=== PATIENT | male | born 1950 | race Caucasian/White ===

== ENCOUNTER 2024-04-12 10:39 | Outpatient (CLI) | payer MEDICARE, OTHER, SELFPAY ==
[2024-04-12 20:13] LABS: Anion Gap 7 mmol/L (4-12); Blood Urea Nitrogen 22 mg/dL (9-20); Calcium 9.8 mg/dL (8.4-10.2); Carbon Dioxide 31 mmol/L (22-30); Chloride 101 mmol/L (98-107); Estimated Glomerular Filt Rate 59; Glucose 105 mg/dL (65-110); Potassium 4.4 mmol/L (3.4-5.0); Sodium 139 mmol/L (137-145)
== END 2024-04-12 10:40 | disposition home or self-care (01) ==
LOC: ANHGOSHLAB 10:44
DX: E11.65 Type 2 diabetes mellitus with hyperglycemia (principal); Z79.4 Long term (current) use of insulin
CPT/HCPCS: 36415; 80048